=== PATIENT | female | born 2000 | race Caucasian/White ===

== ENCOUNTER 2021-06-28 03:04 | Emergency (ER) | payer SELFPAY ==
--- NOTE | ~2021-06-28 | US_ITS ---
EXAMINATION: US pelvic complete w TV DATE: 06/28/2021 08:55 INDICATION: Hypodensity right pelvic structure. Comparison:CT dated 06/28/2021 TECHNIQUE: Multiple transabdominal and endovaginal sonographic images of the pelvis performed. FINDINGS: The uterus measures 6.7 x 3 x 4.7 cm. The endometrial complex measures 1.4 mm. The right ovary measures 4 x 2.6 x 2.7 cm and the left ovary measures 4.6 x 2.6 x 2.8 cm. There are small follicles in each ovary. Normal doppler signal in both ovaries. There is free fluid in the pelvis, superior to the right ovary and posterior cul-de-sac.. There are no abnormal masses seen on either side. IMPRESSION: 1. Unremarkable pelvic ultrasound. Small amount of free fluid in the right adnexa and pelvic cul-de-s ac, likely physiologic. Reviewed, dictated and finalized at location A. IMPRESSION: 1. Unremarkable pelvic ultrasound. Small amount of free fluid in the right adne xa and pelvic cul-de-sac, likely physiologic.
--- NOTE | ~2021-06-28 | CT_ITS ---
EXAMINATION: CT abdomen pelvis w con DATE: 06/28/2021 06:41 INDICATION: Right upper quadrant pain with intermittent nausea. TECHNIQUE: Computed tomography (CT) of the abdomen and pelvis was performed with 100 cc Omnipaque 350 intravenous contrast. The dose-length product was 1432.90 mGy-cm. Automated exposure control and ite rative reconstruction technique were employed. COMPARISON: None. FINDINGS: Lung bases are unremarkable. Heart size is normal. No significant pleural or pericardial ef fusion. No significant vascular abnormality. No evidence for aneurysm or dissection. Fatty infiltration of the liver. The spleen, pancreas, adrenal glands and kidneys are unremarkable. G allbladder is present. No secondary findings to suggest cholecystitis. There is hypodense structure in the right adnexa measuring 3.8 cm, likely a complicated ovarian cyst. Small amount of free fluid in the pelvis. No acute osseous abnormality. No free air. Gallbladder is present. Mildly prominent number of Ileocolic and retroperitoneal lymph nodes, likely reactive. IMPRESSION: 1. Prominent hypodensity right adnexal structure, possibly complicated right ovarian cyst measuring 3 .8 cm. Consider correlation with pelvic ultrasound. Small amount of free fluid in the pelvis. 2: Hepatic steatosis. Reviewed, dictated and finalized at location A. IMPRESSION: 1. Prominent hypodensity right adnexal structure, possibly complicated right ov ga cyst measuring 3.8 cm. Consider correlation with pelvic ultrasound. Small amount of free fluid in the pelvis. 2: Hepatic steatosis.
[2021-06-28 03:09] VITALS: BP 132/84; PULSE 75; RESP 16; TEMP 36.6; O2SAT 100
[2021-06-28 04:01] LABS: Basophils Absolute Auto 0.1 K/mm3 (0.0-0.1); Basophils Percent Auto 0.5 % (0.2-1.2); Eosinophils Absolute Auto 0.1 K/mm3 (0-0.3); Eosinophils Percent Auto 0.8 % (0-4.4); Hematocrit 41.1 % (37.0-47.0); Hemoglobin 14.4 g/dL (12.0-15.0); Immature Granulocyte Absolute 0.04 K/mm3 (0.00-0.031); Immature Granulocyte Percent A 0.3 % (0-0.5); Lymphocytes Absolute Auto 2.64 K/mm3 (0.9-3.2); Lymphocytes Percent Auto 21.1 % (18.3-44.2); Mean Corpuscular Hemoglobin 32.7 pg (26-34); Mean Corpuscular Volume 93.4 fl (80-100); Mean Platelet Volume 10.1 fl (7.4-10.4); Monocytes Percent Auto 7.8 % (2.6-8.5); Neutrophils Absolute Auto 8.7 K/mm3 (1.3-6.7); Neutrophils Percent Auto 69.5 % (45.5-73.1); Platelet Count Result 258 k/mm3 (150-375); Red Cell Distribution Width 11.8 % (11.5-14.5); White Blood Count 12.5 K/mm3 (4.5-10.0)
[2021-06-28 04:12] LABS: Alanine Aminotransferase 54 U/L (4-35); Albumin Level 4.7 g/dL (3.5-5.1); Alkaline Phosphatase 60 U/L (38-126); Anion Gap 10 mmol/L (8-16); Aspartate Amino Transferase 36 U/L (14-36); Bilirubin,Total 0.7 mg/dL (0.2-1.3); Blood Urea Nitrogen 12 mg/dL (7-17); Calcium 9.3 mg/dL (8.4-10.2); Carbon Dioxide 28 mmol/L (22-30); Chloride 102 mmol/L (98-107); Estimated CRCL calculation 128 ml/min; Estimated Glomerular Filt Rate > 60; Glucose 177 mg/dL (65-110); Lipase 38 U/L (23-300); Potassium 4.2 mmol/L (3.4-5.0); Sodium 140 mmol/L (137-145)
--- NOTE | 2021-06-28 05:45 | ED.ABDPAIN ---
HPI - Abdominal Pain General Chief Complaint: Abdominal Pain <Chad Butler MD - Last Filed: 06/28/21 05:48> Stated Complaint: RUQ pain <Chad Butler MD - Last Filed: 06/28/21 05:48> Time Seen by Provider: 06/28/21 05:30 <Chad Butler MD - Last Filed: 06/28/21 05:48> History of Present Illness HPI narrative: Patient is a 20-year-old female who presents ER with right-sided abdominal pain. Has been waxing waning intensity over the last 24 hours. Reports was in her right upper quadrant and in her right lower quadrant. Radiates to her back. Associated with eating. No alleviating factors. Reports she had a UTI 2 weeks ago that she took some [id number] pills for. She feels as if she has no urinary issues at this time. <Chad Butler MD - Last Filed: 06/28/21 05:48> Related Data Allergies/Adverse Reactions: Allergies Allergy/AdvReac Type Severity Reaction Status Date / Time No Known Allergies Allergy Verified 06/28/21 05:36 <Chad Butler MD - Last Filed: 06/28/21 05:48> Review of Systems Review of Systems: All systems reviewed & are unremarkable except as noted in HPI and below <Chad Butler MD - Last Filed: 06/28/21 05:48> Constitutional: Constitutional: Denies chills, Denies fever(s) and Denies weakness <Chad Butler MD - Last Filed: 06/28/21 05:48> Cardiovascular: Cardiovascular: Denies chest pain, Denies rapid heart rate and Denies radiating jaw, neck or arm pain <Chad Butler MD - Last Filed: 06/28/21 05:48> Respiratory: Respiratory: Denies cough and Denies dyspnea <Chad Butler MD - Last Filed: 06/28/21 05:48> Gastrointestinal: Gastrointestinal: Reports abdominal pain, Denies diarrhea, Reports nausea and Denies vomiting <Chad Butler MD - Last Filed: 06/28/21 05:48> Genitourinary: Genitourinary: Denies nocturia, Denies dysuria and Denies flank pain <Chad Butler MD - Last Filed: 06/28/21 05:48> [facility] Past Medical History Medical History: Medical History (Updated 06/28/21 @ 09:23 by Hernando Serna DO) Healthy female adult <Chad Butler MD - Last Filed: 06/28/21 05:48> Surgical History Surgical History: Surgical History (Updated 06/28/21 @ 05:47 by Chad Butler MD) No history of previous surgery <Chad Butler MD - Last Filed: 06/28/21 05:48> Social History Social History: Social History (Updated 06/28/21 @ 05:47 by Chad Butler MD) Smoking status: Never smoker <Chad Butler MD - Last Filed: 06/28/21 05:48> Exam Narrative: GENERAL: Uncomfortable-appearing, obese, and in no acute distress. HEAD: Normocephalic, atraumatic. Eyes: PERRL, EOMI CHEST: Clear to auscultation. No respiratory distress. HEART: Regular rate and rhythm. Normal peripheral pulses. ABDOMEN: Soft, moderate tenderness right lower quadrant with guarding, mild tenderness right upper quadrant with guarding, no left-sided tenderness, nondistended. EXTREMITIES: Normal range of motion. No edema. NEURO: Alert and oriented x3. PSYCH: Normal mood and affect. <Chad Butler MD - Last Filed: 06/28/21 05:48> Course Course Emergency Course: Care turned to myself at shift change by Dr. Butler seen evaluate myself agree with initial H&P. On exam patient has tenderness in the right upper quadrant minimal tenderness in right lower quadrant no tenderness left upper quadrant left lower quadrant Reviewed CT scan abdomen pelvis will obtain ultrasound Patient states that they are feeling much better at this time. States abdominal pain has improved. Repeat abdominal exam shows the patient's abdomen to be soft with no surgical abdomen present discussed with patient results of workup and diagnosis. Discussed need for follow-up with primary care physician, reasons to return to the emergency department in proper use of medication. Patient understands and agrees to current treatment cheikh
[2021-06-28] MEDS: SODIUM CHLORIDE 0.9% IV 1,000 ML 999 ML IV CONT (05:57)
[2021-06-28] MEDS: MORPHINE SULFATE (*CRX) 4 MG/ML INJ IV PUSH (05:59)
[2021-06-28] MEDS: ONDANSETRON INJ 4 MG/2 ML VIAL IV PUSH (06:00)
[2021-06-28 06:06] LABS: Add Urine Microscopic? YES; Appearance Urine Clear (Clear); Bacteria Urine Trace /hpf; Bilirubin Urine Negative (Negative); Blood Urine 3+ (Negative); Color Urine Amber (Yellow); Glucose Urine UA Negative (Negative); Ketones Urine Negative (Negative); Leukocyte Esterase Ur 1+ LEU/UL (Negative); Mucus Urine Heavy /lpf; Nitrate Urine Negative (Negative); Protein Urine 2+ mg/dL (Negative); Squamous Epithelial Cell Urine Many /hpf (Few); WBC Urine 16-20 /hpf
[2021-06-28 06:56] VITALS: BP 133/79; PULSE 81; RESP 18; O2SAT 98
[2021-06-28 07:52] VITALS: BP 121/56; PULSE 60; RESP 12; O2SAT 98
[2021-06-28] MEDS: KETOROLAC 30 MG/ML VIAL (*BKC) IV PUSH (08:30)
[2021-06-28] MEDS: NITROFURANTOIN MONOHYD MACROCR 100 MG CAP PO (09:26)
[2021-06-28 09:40] VITALS: BP 130/82; PULSE 68; RESP 14; O2SAT 99
== END 2021-06-28 09:40 | disposition home or self-care (01) ==
PROVIDERS: Emergency Medicine; Emergency Provider Emergency Medicine
DX: N39.0 Urinary tract infection, site not specified (principal); N83.201 Unspecified ovarian cyst, right side; K76.0 Fatty (change of) liver, not elsewhere classified
CPT/HCPCS: 36415; 74177; 76830; 76856; 80053; 81001; 81025; 83690; 85025; 87077; 87086; 87088; 87186; 96361; 96374; 96375; 99284; A9270; J1885; J2270; J2405; J7030; Q9967